=== PATIENT | male | born 1975 | race Caucasian/White ===

== ENCOUNTER → 2024-05-20 08:45 | Outpatient (BNVA) | payer OTHER, SELFPAY | PROVIDERS: PCP Nurse Practitioner Family; Visit Provider Nurse Practitioner Family | DX: E11.9 Type 2 diabetes mellitus without complications (principal) | CPT/HCPCS: 80053; 80061; 83036; 84443; 85025 ==

== ENCOUNTER → 2024-06-03 11:21 | Outpatient (BNVA) | payer OTHER, SELFPAY | PROVIDERS: PCP Nurse Practitioner Family; Visit Provider Nurse Practitioner Family | DX: D69.6 Thrombocytopenia, unspecified (principal) | CPT/HCPCS: 85025 ==

== ENCOUNTER → 2024-07-07 08:22 | Outpatient (BNVA) | payer OTHER, SELFPAY | PROVIDERS: PCP Nurse Practitioner Family; Visit Provider Nurse Practitioner Family | DX: D69.1 Qualitative platelet defects (principal) | CPT/HCPCS: 80053; 80503; 83010; 83615; 85025 ==

== ENCOUNTER 2024-07-08 09:56 | Oncology outpatient (recurring) (ONCR) | payer OTHER, SELFPAY | END 2024-07-10 23:59 | disposition home or self-care (01) | PROVIDERS: PCP Nurse Practitioner Family; Visit Provider Internal Medicine Hematology & Oncology | DX: D69.3 Immune thrombocytopenic purpura (principal) ==

== ENCOUNTER 2024-07-22 10:34 | Oncology outpatient (recurring) (ONCR) | payer OTHER, SELFPAY ==
[2024-07-22 11:04] LABS: Basophils % 0.2 %; Eosinophils % 0.1 %; Hematocrit 43.4 % (37-53); Lymphocytes # 0.8 10^3/uL (0.8-4.8); Lymphocytes % 9.2 %; Mean Corpuscular HGB Conc 33.4 g/dL (30-55); Mean Corpuscular Hemoglobin 29.8 pg (27-33); Mean Corpuscular Volume 89.3 fl (82-101); Monocytes # 0.3 10^3/uL (0.2-0.9); Monocytes % 3.1 %; Neutrophils # 7.74 10^3/uL (1.8-7.7); Neutrophils % 86.6 %; Nucleated Red Blood Cells % 0 %; Platelet Count 181 10^3/cmm (157-399); Red Blood Count 4.86 10^6/uL (3.85-5.65); Red Cell Distribution Width 13.3 % (12.1-15.1); White Blood Count 8.94 10^3/uL (3.29-11.43)
[2024-07-22 11:16] LABS: LAB Peripheral Smear Sent for Review
[2024-07-22 11:20] LABS: Alanine Aminotransferase 27 U/L (0-41); Albumin Level 4.4 g/dL (3.5-5.2); Alkaline Phosphatase 87 U/L (40-130); Aspartate Amino Transferase 18 U/L (0-40); Blood Urea Nitrogen 14 mg/dL (6-20); Calcium 9.1 mg/dL (8.5-10.5); Carbon Dioxide 28 mmol/L (22-29); Chloride 100 mmol/L (98-107); Globulin 2.6 g/dL (1.3-4.6); Glomerular Filtration Rate 89.3 mL/min (90-130); Glucose 151 mg/dL (65-115); Osmolality Calculated 289 mOsm/kg (285-295); Sodium 138 mmol/L (136-145); Total Bilirubin 0.4 mg/dL (0.15-1.2)
[2024-07-22 11:25] LABS: Anion Gap 14.1 (5-19); Lactate Dehydrogenase 218 U/L (135-225); Potassium 4.1 mmol/L (3.5-5.1)
== END 2024-08-09 23:59 | disposition home or self-care (01) ==
PROVIDERS: PCP Nurse Practitioner Family; Visit Provider Internal Medicine Hematology & Oncology
DX: D69.3 Immune thrombocytopenic purpura (principal)
CPT/HCPCS: 36415; 80053; 83010; 83615; 85025

== ENCOUNTER 2024-09-17 09:13 | Oncology outpatient (recurring) (ONCR) | payer OTHER, SELFPAY ==
[2024-09-17 09:48] LABS: Basophils # 0.1 10^3/uL (0.0-0.1); Basophils % 0.8 %; Eosinophils # 0.3 10^3/uL (0.0-0.8); Eosinophils % 3.7 %; Hematocrit 40.5 % (37-53); Lymphocytes # 1.3 10^3/uL (0.8-4.8); Lymphocytes % 17.6 %; Mean Corpuscular HGB Conc 34.3 g/dL (30-55); Mean Corpuscular Hemoglobin 29.7 pg (27-33); Mean Corpuscular Volume 86.5 fl (82-101); Mean Platelet Volume 11.9 fL (7.4-10.4); Monocytes # 0.5 10^3/uL (0.2-0.9); Monocytes % 6.8 %; Neutrophils # 5.33 10^3/uL (1.8-7.7); Neutrophils % 70.8 %; Nucleated Red Blood Cells % 0 %; Platelet Count 237 10^3/cmm (157-399); Red Blood Count 4.68 10^6/uL (3.85-5.65); Red Cell Distribution Width 12.7 % (12.1-15.1); White Blood Count 7.52 10^3/uL (3.29-11.43)
[2024-09-17 10:06] LABS: Alanine Aminotransferase 21 U/L (0-41); Albumin Level 4.4 g/dL (3.5-5.2); Alkaline Phosphatase 92 U/L (40-130); Anion Gap 14.7 (5-19); Aspartate Amino Transferase 20 U/L (0-40); Blood Urea Nitrogen 15 mg/dL (6-20); Calcium 9.2 mg/dL (8.5-10.5); Carbon Dioxide 25 mmol/L (22-29); Chloride 100 mmol/L (98-107); Creatinine Clr Calc Pharmacy 120.7017; Globulin 3.3 g/dL (1.3-4.6); Glomerular Filtration Rate 89.3 mL/min (90-130); Glucose 108 mg/dL (65-115); Lactate Dehydrogenase 206 U/L (135-225); Osmolality Calculated 283 mOsm/kg (285-295); Potassium 3.7 mmol/L (3.5-5.1); Sodium 136 mmol/L (136-145); Total Bilirubin 0.4 mg/dL (0.15-1.2); Total Protein 7.7 g/dL (6.6-8.7)
== END 2024-10-10 23:59 | disposition home or self-care (01) ==
PROVIDERS: Nurse Practitioner; PCP Nurse Practitioner Family; Visit Provider Internal Medicine
DX: D69.3 Immune thrombocytopenic purpura (principal)
CPT/HCPCS: 36415; 80053; 83010; 83615; 85025

== ENCOUNTER → 2024-12-17 09:28 | Outpatient (BNVA) | payer OTHER, SELFPAY | PROVIDERS: PCP Nurse Practitioner Family; Visit Provider Nurse Practitioner Family | DX: Z12.5 Encounter for screening for malignant neoplasm of prostate (principal); I10 Essential (primary) hypertension; E11.9 Type 2 diabetes mellitus without complications; K21.9 Gastro-esophageal reflux disease without esophagitis | CPT/HCPCS: 80053; 80061; 84443; 85025; G0103 ==

== ENCOUNTER → 2025-04-20 13:26 | Outpatient (BNVA) | payer OTHER, SELFPAY | PROVIDERS: PCP Nurse Practitioner Family; Visit Provider Nurse Practitioner Family | DX: M25.571 Pain in right ankle and joints of right foot (principal); M25.572 Pain in left ankle and joints of left foot; Q72.891 Other reduction defects of right lower limb; R22.42 Localized swelling, mass and lump, left lower limb | CPT/HCPCS: 73610; 73630 ==

== ENCOUNTER → 2025-04-30 16:00 | Outpatient (BNVA) | payer OTHER, SELFPAY | PROVIDERS: PCP Nurse Practitioner Family; Visit Provider Podiatrist Foot & Ankle Surgery | DX: M25.579 Pain in unspecified ankle and joints of unspecified foot (principal); Q72.899 Other reduction defects of unspecified lower limb | CPT/HCPCS: 77073 ==

== ENCOUNTER → 2025-07-08 13:56 | Outpatient (BNVA) | payer OTHER, SELFPAY | PROVIDERS: PCP Nurse Practitioner Family; Visit Provider Nurse Practitioner Family | DX: E11.9 Type 2 diabetes mellitus without complications (principal) | CPT/HCPCS: 80053; 80061; 83036; 84443; 85025 ==